=== PATIENT | female | born 1995 | race Caucasian/White ===

== ENCOUNTER 2017-06-11 08:59 | Emergency (ER) | payer BC ==
--- NOTE | ~2017-06-11 | ER ---
PATIENT'S NAME: RODNEY PATRICIO [facility] AGE: 21 Y [address] ROOM: [place] [address] LOCATION: ED ADMIT DATE: 06/11/2017 ER/Outpatient Report DISCHARGE DATE: 06/11/2017 FAMILY PHYSICIAN: Lindsay Griggs MD ATTENDING PHYSICIAN: Sudarshan Adams CHIEF COMPLAINT: Tachycardia. HISTORY OF PRESENT ILLNESS: Ms. Patricio notes that last night around 11:00 p.m. she became tachycardic. It was unsettling to her. She tried sleeping but was unable to. She did take some medication last night with Midol that may have contained some caffeine and she thought that was the case and she would feel better in the morning, however, she is not. She came here because the symptoms are persistent. She has not contacted anyone else. She denies any significant use of stimulants, any recent weight changes, heat or cold intolerance, or other concerning signs or symptoms. Incidentally, she does note that her hands do not feel normal, however, she cannot further clarify what that means. She denies any recent falls, injuries, travel, hospitalizations, surgeries, or any hormone therapy. She does endorse irregular periods, but that has been present since the onset of menses. She denies any other symptoms at this time and otherwise feels fine. She does not feel unsettled, anxious, or unwell in any other way. She denies any other infectious signs or symptoms. PAST MEDICAL HISTORY: Documented on the record and reviewed by me. SOCIAL HISTORY: Documented on the record and reviewed by me. MEDICATIONS: Documented on the record and reviewed by me. ALLERGIES: DOCUMENTED ON THE RECORD AND REVIEWED BY ME. REVIEW OF SYSTEMS: All systems reviewed and negative except as noted in the HPI. PHYSICAL EXAMINATION: VITAL SIGNS: Blood pressure 126/78, pulse 120, respiratory rate 18, temperature 99.5, and SpO2 is 98% on room air. Pain is rated 0/10. GENERAL: Age-appropriate female, upright on the exam chair, in no apparent pain or distress. PATIENT'S NAME: RODNEY PATRICIO [facility] AGE: 21 Y [address] ROOM: [place] [address] LOCATION: ED ADMIT DATE: 06/11/2017 ER/Outpatient Report DISCHARGE DATE: 06/11/2017 FAMILY PHYSICIAN: Lindsay Griggs MD ATTENDING PHYSICIAN: Sudarshan Adams NEUROLOGIC: Awake and alert. GCS is 15. No focal deficits. No asymmetry. No asymmetric weakness of the bilateral upper extremities. No sensory deficits of the upper extremities appreciated. HEENT: Normocephalic, atraumatic. Eyes are PERRL. Oropharynx is clear. NECK: Supple. Trachea is midline. CHEST/HEART: Regular. Tachycardia with no murmurs. LUNGS: Clear to auscultation bilateral. No rhonchi, wheezes, or rales. ABDOMEN: Soft, nontender, and nondistended. No rebound or guarding. BACK: Normal to inspection and palpation. No CVA tenderness. No spinal tenderness. EXTREMITIES: Warm and well perfused. No edema. No deformities. SKIN: Clean, dry, and intact. No rashes. Not diaphoretic with brisk capillary refill. LABORATORY DATA AND X-RAYS: Chest x-ray is unremarkable per my review. EKG: Sinus tachycardia, rate of 120 beats per minute with otherwise normal intervals and axis. No comparison available. Labs: Free T4 1.1. TSH 2.28. CMS with no appreciable abnormalities. HCG is undetectable. CBC: White count is 11.1, hemoglobin 15.6, platelets of 314, otherwise grossly unremarkable. D-dimer is below threshold. IMPRESSION: Sinus tachycardia of undetermined etiology. EMERGENCY DEPARTMENT COURSE: The patient was seen and evaluated. She was given a liter of normal saline with marked improvement in both symptoms and heart rate, however, not complete resolution of tachycardia. The patient was excluded for D-dimer. She has no conduction abnormalities of the heart including WPW, AVNRT, or other supraventricular tachycardia. D-dimer effectively excludes PE in this setting, as she is extremely low risk. TSH is normal as well making hyperthyroidism very unlikely. The patient remained otherwise stable in the ER. We talked at length regarding other possibilities and at this time, we will defer further evaluation to the clinic. The patient's primary care is Dr. Lindsay Griggs, she is not available and thus I spoke with Dr. Jose Hannon at [facility]. He is recommending initiation of metoprolol tartrate 25 mg twice daily and follow up within 48 hours in clinic to re-evaluate how she is feeling, her response to treatment, and any further intervention. All questions were answered, and the patient was discharged in stable condition. PATIENT'S NAME: RODNEY PATRICIO [facility] AGE: 21 Y [address] ROOM: [place] [address] LOCATION: [facility] ADMIT DATE: 06/11/2017 ER/Outpatient Report DISCHARGE DATE: 06/11/2017 FAMILY PHYSICIAN: Lindsay Griggs MD ATTENDING PHYSICIAN: Sudarshan Adams MD JH/rabia /[id number] d: 06/11/17 2108 t: 06/14/17 0741, OUTPATIENT REPORT
[2017-06-11 10:05] LABS: BASOPHIL # 0.1 K/uL (0.0-0.2); BASOPHIL % 0.5 %; EOSINOPHIL % 0.1 %; HEMATOCRIT 45.9 % (33.0-46.0); HEMOGLOBIN 15.6 g/dL (11.0-15.0); IMMATURE GRANULOCYTE # 0.2 K/uL (0.0-0.3); IMMATURE GRANULOCYTE % 1.5 %; LYMPHOCYTE # 1.6 K/uL (0.8-4.0); LYMPHOCYTE % 14.4 %; MCH 29.7 pg (27.0-34.0); MCV 87.3 fl (83.0-98.0); MONOCYTE # 0.4 K/uL (0.0-1.0); MONOCYTE % 3.3 %; MPV 9.1 fl (9.4-12.4); NEUTROPHIL # (ANC) 8.9 K/uL (1.8-7.8); NEUTROPHIL % 80.2 %; NRBC % 0 /100WBC (0-0.00); PLATELET COUNT 314 K/uL (150-450); RBC 5.26 M/uL (3.50-5.00); RDW-CV 11.6 % (11.9-14.6); WBC 11.1 K/uL (4.0-11.0)
[2017-06-11 10:09] LABS: ALBUMIN 4.6 gm/dL (3.5-5.0); ALK PHOS 91 IU/L (33-138); ALT 31 IU/L (12-78); ANION GAP 12.7 (10.0-19.0); AST 29 IU/L (10-40); BLOOD UREA NITROGEN 7 mg/dL (6-24); CALCIUM 9.1 mg/dL (8.5-10.5); CHLORIDE 108 mMol/L (96-110); CO2 24 mMol/L (22-32); CREATININE 0.8 mg/dL (0.5-1.1); POTASSIUM 3.7 mMol/L (3.7-5.1); SODIUM 141 mMol/L (135-145); TOTAL BILIRUBIN 0.6 mg/dL (0.0-1.5); TOTAL PROTEIN 8.4 g/dL (6.0-8.4)
== END 2017-06-11 11:38 | disposition disaster alternative care site (69) ==
LOC: GMED 08:59
PROVIDERS: Emergency Medicine
DX: R00.0 Tachycardia, unspecified (principal); Z79.899 Other long term (current) drug therapy
CPT/HCPCS: J7030